=== PATIENT | female | born 1995 | race African-American/Black ===

== ENCOUNTER 2024-12-25 20:38 | Emergency (ER) | payer SELFPAY ==
[~2024-12-25] VITALS: Ht 165.1 cm; Wt 67.0 kg
[2024-12-25 20:39] VITALS: O2SAT 99
[2024-12-25] MEDS: KETOROLAC 15MG/ML VIAL IV ONE (21:55)
[2024-12-25] MEDS: ONDANSETRON HCL 4MG/2ML INJ IV ONE (21:55)
[2024-12-25 22:00] LABS: CLARITY URINE TURBID (CLEAR); COLOR URINE RED (YELLOW); GLUCOSE URINE NEGATIVE (NEGATIVE); KETONES URINE NEGATIVE (NEGATIVE); LEUKOCYTE ESTERASE URINE 2+ (NEGATIVE); NITRITE URINE NEGATIVE (NEGATIVE); OCCULT BLOOD URINE 3+ (NEGATIVE); PH URINE 7.0 (4.5-8.0); PROTEIN URINE 2+ (NEGATIVE); SPECIFIC GRAVITY URINE 1.017 (1.005-1.030); UROBILINOGEN URINE 0.2 E.U./dL (0.2-1.0)
[2024-12-25] MEDS: SODIUM CHLORIDE 0.9% 1,000 ML IV ONE (22:02)
[2024-12-25 22:03] LABS: BASOPHILS % 0.6 % (0.0-2.0); EOSINOPHILS % 2.5 % (0.0-5.0); HEMATOCRIT. 38.1 % (36.0-48.0); HEMOGLOBIN. 12.3 g/dL (12.0-16.0); LYMPHOCYTES % 31.3 % (20.0-50.0); MEAN PLATELET VOLUME 9.4 fl (7.4-10.4); MONOCYTES % 10.4 % (2.0-8.0); NEUTROPHILS % 55.2 % (40.0-76.0); PLATELET 195 x1000/uL (130-400); RED BLOOD CELL COUNT 4.87 mill/uL (4.2-5.4); RED CELL DISTRIBUTION WIDTH 21.7 % (11.6-14.6)
[2024-12-25 22:13] LABS: CREATININE 0.6 mg/dL (0.6-1.0); UREA NITROGEN BLOOD 7 mg/dL (9-23)
[2024-12-25 22:15] LABS: ASPARTATE AMINOTRANSFERASE 12 IU/L (<34); BILIRUBIN DIRECT 0.2 mg/dL (<=3.0)
[2024-12-25 22:16] LABS: BILIRUBIN TOTAL 0.8 mg/dL (0.1-1.0); PROTEIN TOTAL 7.6 g/dL (6.0-8.3)
[2024-12-25 22:17] LABS: SQUAMOUS EPITHELIAL CELL URINE RARE /lpf (RARE/1+)
[2024-12-25 22:18] LABS: BACTERIA URINE 1+; RBC URINE 50-100 /hpf (0-2); WBC URINE TNTC /hpf (0-2)
[2024-12-25 22:37] LABS: HCG SCREEN NEGATIVE
[2024-12-26] MEDS ORDERED: CEFP200T13 MT (02:45)
[2024-12-26] MEDS ORDERED: NAPR-681 MT (02:45)
[2024-12-26] MEDS: ACETAMINOPHEN 325MG TABLET PO ONE (02:45)
[2024-12-26] MEDS: CEFTRIAXONE 1GM/50ML 50 ML IV ONE (02:45)
[2024-12-26 04:07] VITALS: BP 130/70; PULSE 89; RESP 17; TEMP 36.9; O2SAT 100
== END 2024-12-26 04:01 | disposition home or self-care (01) ==
LOC: ER 20:38
DX: N93.9 Abnormal uterine and vaginal bleeding, unspecified (principal); R10.2 Pelvic and perineal pain; R11.0 Nausea; R19.7 Diarrhea, unspecified; J45.909 Unspecified asthma, uncomplicated; Z79.1 Long term (current) use of non-steroidal anti-inflammatories (NSAID)
CPT/HCPCS: 80076; 80048; 81003; 84703; 83690; 85025; 86850; 86900; 86901; 87086; 36415; 76830; 76856; 96361; 96375; 99285; 96365; J1885; J2405; J7030; Z7610; J0696